=== PATIENT | female | born 1970 | race American Indian/Alaskan Native ===

== ENCOUNTER 2017-09-29 09:48 | Outpatient (CLI) | payer BC ==
--- NOTE | 2017-09-29 13:37 | Cat Scan Report ---
CT CHEST WITH CONTRAST: HISTORY: Malignant neoplasm of ascending colon. COMPARISON: 07/20/13. TECHNIQUE: Helical CT in 1.25mm intervals following IV contrast. Sagittal and coronal reformatted images. FINDINGS: Thyroid gland: Normal. Tracheobronchial tree: Normal. Esophagus: Normal. Heart: Normal. Pericardium: Normal. Mediastinum: Normal. Lung Murry: Normal. Pleural Spaces: Normal. Musculoskeletal: Normal. IMPRESSION: Unremarkable CT chest with contrast. No evidence for metastatic disease to the chest.
--- NOTE | 2017-09-29 13:42 | Cat Scan Report ---
CT ABDOMEN PELVIS WITH CONTRAST: HISTORY: Malignant neoplasm of the ascending colon. COMPARISON: 07/20/13. TECHNIQUE: Helical CT in 1.25mm intervals following IV contrast. Sagittal and coronal reconstructions. FINDINGS: Lung bases: normal. Liver: normal. 1 cm right hepatic lobe cyst is noted and unchanged. Biliary system: normal. Pancreas: normal. Spleen: normal. Kidneys/ureters/bladder: normal. Adrenal glands: normal. Aorta: normal. Intestines: No evidence for bowel obstruction, inflammation or focal bowel wall thickening. No recurrent GI mass is noted. Appendix: Not confidently identified, correlate with surgical history. Pelvic viscera: A 2.1 cm right ovarian cyst is identified. The left adnexa is unremarkable. The uterus is small in size or surgically absent, correlate with history. Musculoskeletal: normal. IMPRESSION: Unremarkable CT scan of the abdomen and pelvis with contrast. No evidence for disease recurrence or metastasis. 2.1 cm right ovarian cyst.
== END 2017-09-29 09:49 | disposition home or self-care (01) ==
LOC: CT 09:48 → SPVIMAG 09:48 → CT 09:49
PROVIDERS: ATTEND Internal Medicine Hematology & Oncology
DX: C18.2 Malignant neoplasm of ascending colon (principal); N83.201 Unspecified ovarian cyst, right side; K76.89 Other specified diseases of liver; D70.9 Neutropenia, unspecified
CPT/HCPCS: 71260; 74177; Q9967